=== PATIENT | female | born 1990 | race Caucasian/White ===

== ENCOUNTER → 2017-06-02 15:51 | Outpatient (CLI) | payer OTHER, SELFPAY ==
[2017-06-02 16:09] LABS: Hematocrit 36.7 % (37-47); Mean Corp Hgb Conc 32.7 g/gl (32-36); Mean Corpuscular Hgb 29.6 pg (27.0-32.0); Mean Corpuscular Volume 90.4 fL (81-99); Mean Platelet Vol. 11.6 fl (6.2-12.0); Platelet Count 194 K/mm3 (150-450); RBC Distribution Width CV 13.5 % (11.6-14.6); RBC Distribution Width SD 44.5 fl (35.1-43.9); Red Blood Count 4.06 M/mm3 (4.2-5.4); White Blood Count 11.2 K/mm3 (4.4-11.0)
[2017-06-02 16:38] LABS: Partial Thromboplast Time 27.7 Seconds (24.1-36.2)
[2017-06-02 16:54] LABS: Scan Indicated on CBC? Y/N NO
== END ==
PROVIDERS: Visit Provider Obstetrics & Gynecology
DX: O26.899 Other specified pregnancy related conditions, unspecified trimester (principal); R23.3 Spontaneous ecchymoses; Z3A.00 Weeks of gestation of pregnancy not specified
CPT/HCPCS: 36415; 85027; 85610; 85730

== ENCOUNTER → 2017-06-09 16:39 | Outpatient (CLI) | payer OTHER, SELFPAY ==
[2017-06-09 18:49] LABS: Group B Strep DNA By PCR Negative (Negative); Internal Control PASS; Probe Check PASS; Specimen Processing Control PASS
== END ==
PROVIDERS: Visit Provider Obstetrics & Gynecology
DX: Z36.85 Encounter for antenatal screening for Streptococcus B (principal)
CPT/HCPCS: 87081; 87653

== ENCOUNTER 2017-06-26 05:18 | Inpatient (IN) | payer BC, SELFPAY ==
[2017-06-23 09:58] VITALS: BMI 36.1
[2017-06-26] VITALS (22 sets, daily range): BP systolic 101–133; BP diastolic 59–94; PULSE 63–95; RESP 16–18; TEMP 35.8–36.6; O2SAT 95–99; BMI 37.0
[2017-06-26] MEDS: Lactated Ringers 1,000 ML 999 ML IV (05:43)
[2017-06-26 05:59] LABS: Absolute Lymphocyte Count 1.95 X10^3/ul (0.83-4.51); Absolute Neutrophil Count 8.2 X10^3/uL (2.0-7.7); Basophil# 0.02 X10^3/uL; Basophil% 0.2 % (0-1); Eosinophils% 0.9 % (0-5); Hematocrit 36.3 % (37-47); Hemoglobin 11.6 g/dl (12.0-15.0); Lymphocyte # 1.95 X10^3/ul (4.0); Lymphocyte % 17.9 % (19-41); Mean Corpuscular Hgb 28.9 pg (27.0-32.0); Mean Corpuscular Volume 90.5 fL (81-99); Mean Platelet Vol. 11.5 fl (6.2-12.0); Monocyte# 0.59 X10^3/uL; Monocyte% 5.4 % (0-10); Neutrophil # 8.15 X10^3/uL (2.7-7.7); Platelet Count 177 K/mm3 (150-450); RBC Distribution Width CV 13.8 % (11.6-14.6); RBC Distribution Width SD 45.6 fl (35.1-43.9); Red Blood Count 4.01 M/mm3 (4.2-5.4); White Blood Count 10.9 K/mm3 (4.4-11.0)
[2017-06-26 06:06] LABS: POSITIVE COUNT NO; POSITIVE DIFFERENTIAL NO; POSITIVE MORPHOLOGY NO
[2017-06-26 06:17] LABS: Prothrombin Time (Protime)PT. 13.1 SECONDS (11.7-14.9)
[2017-06-26 06:18] LABS: Partial Thromboplast Time 27.6 Seconds (24.1-36.2)
[2017-06-26] MEDS: Lactated Ringers 1,000 ML 150 ML IV (06:45)
[2017-06-26] MEDS: Sodium Citrate/Citric Acid 30 ML UDC PO (07:03)
[2017-06-26] MEDS: Clindamycin 900 MG/50 ML BAG 75 MG IV (07:30)
--- NOTE | 2017-06-26 08:35 | PCM.OB.CSR ---
- Problem List (1) delivery delivered Status: Acute Delivery Classification: Scheduled Final XIOMARA: 07/03/17 Final XIOMARA Source: US <20 weeks Gestational age: 39 Weeks and 0 Days Indications: 26 year old 2 para 1000 admitted at 39 weeks gestational age for scheduled repeat section. Indications for : Repeat Elective Description of Procedure: The patient was taken to the operating room and spinal analgesia was administered. She is placed in a dorsal supine position with left lateral tilt. The perineum and abdomen were prepped and draped in sterile fashion. And the spinal was found to be adequate. A Pfannenstiel incision was made using a scalpel and brought down to incise the subcutaneous tissue and rectus fascia at the midline. Subcutaneous tissue was bluntly dissected off the fascia laterally. The fascial incision was dissected laterally and cephalad using curved García scissors. The superior leaflet of the rectus fascia was grasped using Carolina clamps and bluntly dissected and sharply dissected from the underlying rectus muscle. In a similar fashion the inferior rectus fascia was dissected from the underlying muscle. The rectus muscles were bluntly at the midline. The peritoneum was identified and entered [sharply]. The bladder blade was placed into the abdomen and the vesicouterine peritoneal fold identified. The fold was incised and a bladder flap created. Bladder blade was then repositioned to the abdomen. A low transverse hysterotomy was made using the [Metzenbaum scissors] to level of the membranes. The hysterotomy was extended bluntly cephalad and caudad. The membranes were then ruptured revealing clear fluid. The head was elevated and brought to the level of the hysterotomy and the infant delivered revealing vigorous female infant. The cord was doubly clamped and cut after 30 seconds. The was passed to awaiting [nursery personnel]. The placenta was [expressed] from the uterus and appeared intact on inspection. The uterus was cleared of debris. The hysterotomy was then repaired using 0 Vicryl running lock suture. A second imbricating layer was also placed for additional hemostasis. The bladder blade was removed. The anterior cul-de-sac was cleared of debris. The peritoneum and rectus muscles were reapproximated using 2-0 Vicryl running suture. The rectus fascia was closed using 0 Vicryl running suture. The subcutaneous tissue was sponge irrigated and small capillary bleeding controlled using the Bovie device. The subcutaneous tissue was reapproximated using 2-0 Vicryl. The skin was closed using 4-0 Monocryl subcuticularly the TIRE DUSTER under my supervision. This was followed by Cavilon and a Mepilex occlusive dressing was placed over the incision. The fundus was firm. The patient was then transferred to the recovery room without complication. Sponge, instrument, and needle counts were correct ?2. Amniotic Membrane Rupture Type: Artificial Amniotic Fluid Description: Clear Placenta Disposition: [facility] Specimen(s) sent to pathology: placenta Drain: Bunch to straight drain Fluids Replaced: 1000 ml Cord Entanglement: None Nuchal Cord Compression: Without compression Cord Vessel Description: 3 Vessels Esitmated Blood Loss (ml): 700 ml Infant Gender: Female (1 minute): 9 (5 minute): 9 Delayed cord clamping: Yes Pre-op Antibiotic Given: Clindamycin 600mg IV x1 and Gentamicin 1.5mg/kg IV x1 Pt instructed on risks of surgery: Bleeding, Anesthesia Risks, Infection, Need for Future C-Sections, Injury to surrounding structure(s) including bowel and bladder Complications: None - Admit VTE Documentation VTE Present on Admission: Yes VTE Mechan Device Prophylaxis: SCD's VTE Pharm Prophylaxis ordered?: No
--- NOTE | 2017-06-26 08:36 | OP.PN_ITS ---
- Problem List (1) delivery delivered Status: Acute H-Bauofak-Hotxmryxa PostOp Date of Procedure: 06/26/17 Primary Surgeon/Physician: Wendy Ahmadi, business development coordinator: Vickie Marcelo Pre-op Diagnosis: Repeat Elective Post-Op Diagnosis: Repeat Elective Surgery/Procedure Performed: Repeat low transverse Section Description of Surgical Findings:: Normal tubes and ovaries Estimated Blood Loss: 700 mL Specimens Removed: placenta Drain: Bunch to straight drain Type of Anesthesia: Spinal - Admit VTE Documentation VTE Present on Admission: No VTE Mechan Device Prophylaxis: SCD's VTE Pharm Prophylaxis ordered?: No
--- NOTE | 2017-06-26 08:38 | OP.PCM_ITS ---
- Problem List (1) delivery delivered Status: Acute Delivery Classification: Scheduled Final XIOMARA: 07/03/17 Final XIOMARA Source: US <20 weeks Gestational age: 39 Weeks and 0 Days Indications: 26 year old 2 para 1000 admitted at 39 weeks gestational age for scheduled repeat section. Indications for : Repeat Elective Description of Procedure: The patient was taken to the operating room and spinal analgesia was administered. She is placed in a dorsal supine position with left lateral tilt. The perineum and abdomen were prepped and draped in sterile fashion. And the spinal was found to be adequate. A Pfannenstiel incision was made using a scalpel and brought down to incise the subcutaneous tissue and rectus fascia at the midline. Subcutaneous tissue was bluntly dissected off the fascia laterally. The fascial incision was dissected laterally and cephalad using curved García scissors. The superior leaflet of the rectus fascia was grasped using Carolina clamps and bluntly dissected and sharply dissected from the underlying rectus muscle. In a similar fashion the inferior rectus fascia was dissected from the underlying muscle. The rectus muscles were bluntly at the midline. The peritoneum was identified and entered [sharply]. The bladder blade was placed into the abdomen and the vesicouterine peritoneal fold identified. The fold was incised and a bladder flap created. Bladder blade was then repositioned to the abdomen. A low transverse hysterotomy was made using the [Metzenbaum scissors] to level of the membranes. The hysterotomy was extended bluntly cephalad and caudad. The membranes were then ruptured revealing clear fluid. The head was elevated and brought to the level of the hysterotomy and the infant delivered revealing vigorous female infant. The cord was doubly clamped and cut after 30 seconds. The was passed to awaiting [nursery personnel]. The placenta was [expressed ] from the uterus and appeared intact on inspection. The uterus was cleared of debris. The hysterotomy was then repaired using 0 Vicryl running lock suture. A second imbricating layer was also placed for additional hemostasis. The bladder blade was removed. The anterior cul-de-sac was cleared of debris. The peritoneum and rectus muscles were reapproximated using 2-0 Vicryl running suture. The rectus fascia was closed using 0 Vicryl running suture. The subcutaneous tissue was sponge irrigated and small capillary bleeding controlled using the Bovie device. The subcutaneous tissue was reapproximated using 2-0 Vicryl. The skin was closed using 4-0 Monocryl subcuticularly the RETANNED LEATHER ROLLER under my supervision. This was followed by Cavilon and a Mepilex occlusive dressing was placed over the incision. The fundus was firm. The patient was then transferred to the recovery room without complication. Sponge, instrument, and needle counts were correct ?2. Amniotic Membrane Rupture Type: Artificial Amniotic Fluid Description: Clear Placenta Disposition: [facility] Specimen(s) sent to pathology: placenta Drain: Bunch to straight drain Fluids Replaced: 1000 ml Cord Entanglement: None Nuchal Cord Compression: Without compression Cord Vessel Description: 3 Vessels Esitmated Blood Loss (ml): 700 ml Gender: Female (1 minute): 9 (5 minute): 9 Delayed cord clamping: Yes Pre-op Antibiotic Given: Clindamycin 600mg IV x1 and Gentamicin 1.5mg/kg IV x1 Pt instructed on risks of surgery: Bleeding, Anesthesia Risks, Infection, Need for Future C-Sections, Injury to surrounding structure(s) including bowel and bladder Complications: None - Admit VTE Documentation VTE Present on Admission: Yes VTE Mechan Device Prophylaxis: SCD's VTE Pharm Prophylaxis ordered?: No
[2017-06-26] MEDS: Methylergonovine 0.2 MG/ML Ampul IM (08:40)
[2017-06-26] MEDS: Lactated Ringers 1,000 ML 100 ML IV ×3 (08:49→18:18)
[2017-06-26] MEDS: Oxytocin 30 units/NS 500 ml 30 UNITS/500 ML IV.SOLN 167 UNITS IV (08:49)
[2017-06-26] MEDS: Ketorolac 30 MG/ML Syringe IV ×2 (13:00→18:17)
[2017-06-27] VITALS (7 sets, daily range): BP systolic 102–134; BP diastolic 62–81; PULSE 72–91; RESP 15–18; TEMP 36.6–36.8; O2SAT 95–100
[2017-06-27] MEDS: Ketorolac 30 MG/ML Syringe IV ×5 (00:07→23:45)
[2017-06-27] MEDS: Lactated Ringers 1,000 ML 100 ML IV (04:07)
[2017-06-27 06:17] LABS: Hematocrit 28.6 % (37-47); Hemoglobin 9.3 g/dl (12.0-15.0); Mean Corp Hgb Conc 32.5 g/gl (32-36); Mean Corpuscular Hgb 29.8 pg (27.0-32.0); Mean Corpuscular Volume 91.7 fL (81-99); Mean Platelet Vol. 11.6 fl (6.2-12.0); Platelet Count 156 K/mm3 (150-450); RBC Distribution Width CV 13.7 % (11.6-14.6); RBC Distribution Width SD 44.8 fl (35.1-43.9); Red Blood Count 3.12 M/mm3 (4.2-5.4); White Blood Count 10.9 K/mm3 (4.4-11.0)
[2017-06-27 06:19] LABS: Scan Indicated on CBC? Y/N NO
--- NOTE | 2017-06-27 06:36 | NURSING ---
0600 pt has removed SCD, moving legs in bed was up in chair and in room 2 or more times last evening so left off and encouraged to continue to move legs will be 24 post op by 8am. states they were making her legs itch.
--- NOTE | 2017-06-27 09:14 | NURSING ---
duong removed with 780cc urine
[2017-06-27] MEDS: Prenatal Vits Tablet 1 TABLET PO (10:01)
--- NOTE | 2017-06-27 10:06 | PCM.PN.OB ---
Patient Problems: Active and Suspected Problems delivery delivered (Acute) Subjective: Nausea resolved. tolerates regular diet. Passing flatus. Denies heavy lochia. Pain is minimal 2-3/10. She is out of bed, ambulating, showered already. She is nursing. Objective: AVSS - Physical Exam General: Alert, Oriented x3, Cooperative, No apparent distress HEENT: Atraumatic, Normocephalic Lungs: Clear to auscultation, Normal air movement Cardiovascular: Regular rate, Regular Rhythm, Normal S1, Normal S2 Abdomen: Soft, Non Tender, Non-Distended, Passing Flatus, - - Fundus firm and nontender Extremities: No edema, No Calf Tenderness Neurological: Neuro grossly intact Psych/Mental Status: Normal Affect, Appropriate, Alert and oriented to time, place, person, mood and affect Vital Signs Temp Pulse Resp BP Pulse Ox 98.1 F 81 17 123/79 H 100 06/27/17 08:00 06/27/17 08:00 06/27/17 08:00 06/27/17 08:00 06/27/17 08:00 Oxygen Delivery Method Room Air Weight: 92 kg Body Mass Index (BMI) 37.0 Intake and Output for Last 24 Hours 06/25/17 06/26/17 06/27/17 23:59 23:59 23:59 Intake Total 2306 / 2306 2741 / 2741 Output Total 1625 / 1625 2330 / 2330 Balance 681 / 681 411 / 411 Laboratory Tests Past 24 Hrs 06/27/17 06:05 WBC 10.9 RBC 3.12 L Hgb 9.3 L Hct 28.6 L MCV 91.7 MCH 29.8 MCHC 32.5 RDW 13.7 RDW Differential 44.8 H Plt Count 156 MPV 11.6 Assessment/Plan Active and Suspected Problems delivery delivered (Acute) 26yo POD#1 s/p RLTCS doing well. -Rh positive, Rubella immune -Routine postop care - support
[2017-06-27] MEDS: 0.9% Saline Lock 10 ML Syringe IV ×2 (12:15→18:05)
--- NOTE | 2017-06-27 15:25 | NURSING ---
1100 Observed latch and baby doing well with latch. Mom doing a great job with latching and holding baby in a cross cradle position. Mom to be getting a home breast pump but will need to check with her insurance on Thursday to see if approved. Mario ALBRIGHT
[2017-06-27] MEDS: Senna/Docusate Sodium 1 Tablet PO (16:12)
--- NOTE | 2017-06-27 17:21 | PCM.DCCSEC ---
Discharge Diet: No Restrictions Discharge Activity: Return to Normal Activity May resume sexual activity in: 6 weeks Lifting Restrictions: 10 lb Suture Line Care: Avoid Pulling/Pushing Cleanse incision/area with: Soap & Water Additional Dressing/Incision Instructions:: Remove dressing on Thursday morning Additional Instructions: If you experience any of the following, contact your healthcare provider. Bleeding that soaks a pad every hour for 2 hours Fever 100.4 or higher Unrelieved incision or abdominal pain Swelling, redness, discharge or bleeding from your incision or episiotomy site Your incision begins to separate Problems urinating (including inability to urinate or burning while urinating). Visual changes Severe headache Flu-like symptoms Pain or redness in one of both of your breasts Pain, warmth, tenderness or swelling in your legs, especially the calf area Frequent nausea and vomiting Symptoms of depression or anxiety If you experience any of the following, call 911 or go to the nearest Emergency Room. Chest pain Problems breathing Seizure activity Partial or complete paralysis of a body part, slurred speech, weakness or drooping of the face, or a sudden inability to walk or hold your balance Allergies/Adverse Reactions: Allergies ampicillin Allergy (Verified 06/23/17 09:29) Unknown cefaclor [From Ceclor] Allergy (Verified 06/23/17 09:30) Unknown cefotaxime Allergy (Verified 06/23/17 09:29) Unknown Medications to take at Discharge Prenatabs FA 1 tab PO DAILY 06/23/17 Docusate Sodium [Colace] 100 mg PO BID PRN PRN #60 cap 06/27/17 Ibuprofen 800 mg PO TID PRN #30 tab 06/27/17 Oxycodone [Oxyir] 5 mg PO Q4H PRN PRN 7 Days #28 tablet 06/27/17 The following prescriptions were given: Oxycodone [Oxyir] 5 mg PO Q4H PRN PRN 7 Days #28 tablet PRN Reason: Pain Docusate Sodium [Colace] 100 mg PO BID PRN PRN #60 cap PRN Reason: Constipation Ibuprofen 800 mg PO TID PRN #30 tab PRN Reason: Pain Orders to be completed after discharge: Electric breast pump Location: None Selected Follow-Up: Call to make an appointment with your doctor for an incision check in 1-2 weeks. You will also need a 6 week post- follow up appointment. Please Follow Up With: Wendy Ahmadi MD When: 1-2 weeks Primary Care Physician: Care Physician,No Primary [Primary Care Provider] -
--- NOTE | 2017-06-27 17:24 | DCINST_ITS ---
Discharge Diet: No Restrictions Discharge Activity: Return to Normal Activity May resume sexual activity in: 6 weeks Lifting Restrictions: 10 lb Suture Line Care: Avoid Pulling/Pushing Cleanse incision/area with: Soap & Water Additional Dressing/Incision Instructions:: Remove dressing on Thursday morning Additional Instructions: If you experience any of the following, contact your healthcare provider. * Bleeding that soaks a pad every hour for 2 hours * Fever 100.4 or higher * Unrelieved incision or abdominal pain * Swelling, redness, discharge or bleeding from your incision or episiotomy site * Your incision begins to separate * Problems urinating (including inability to urinate or burning while urinating) . * Visual changes * Severe headache * Flu-like symptoms * Pain or redness in one of both of your breasts * Pain, warmth, tenderness or swelling in your legs, especially the calf area * Frequent nausea and vomiting * Symptoms of depression or anxiety If you experience any of the following, call 911 or go to the nearest Emergency Room. * Chest pain * Problems breathing * Seizure activity * Partial or complete paralysis of a body part, slurred speech, weakness or drooping of the face, or a sudden inability to walk or hold your balance Allergies/Adverse Reactions: Allergies ampicillin Allergy (Verified 06/23/17 09:29) Unknown cefaclor [From Ceclor] Allergy (Verified 06/23/17 09:30) Unknown cefotaxime Allergy (Verified 06/23/17 09:29) Unknown Medications to take at Discharge Prenatabs FA 1 tab PO DAILY 06/23/17 Docusate Sodium [Colace] 100 mg PO BID PRN PRN #60 cap 06/27/17 Ibuprofen 800 mg PO TID PRN #30 tab 06/27/17 Oxycodone [Oxyir] 5 mg PO Q4H PRN PRN 7 Days #28 tablet 06/27/17 The following prescriptions were given: Oxycodone [Oxyir] 5 mg PO Q4H PRN PRN 7 Days #28 tablet PRN Reason: Pain Docusate Sodium [Colace] 100 mg PO BID PRN PRN #60 cap PRN Reason: Constipation Ibuprofen 800 mg PO TID PRN #30 tab PRN Reason: Pain Orders to be completed after discharge: Electric breast pump Location: None Selected Follow-Up: Call to make an appointment with your doctor for an incision check in 1-2 weeks. You will also need a 6 week post- follow up appointment. Please Follow Up With: Wendy Ahmadi MD When: 1-2 weeks Primary Care Physician: Care Physician,No Primary [Primary Care Provider] -
--- NOTE | 2017-06-27 17:28 | PCM.PN.BLA ---
Progress Note PROGRESS NOTE Doing well. No complaints. Relates she would like discharge to home today if infant bilirubin levels are normal. I encouraged her to consider staying an additional day for support. Dorys indicated that she feels more comfortable after meeting with wine consultant today and she will see her local wine consultant following discharge. Will plan for d/c home today if infant cleared.
--- NOTE | 2017-06-27 17:33 | PN_ITS ---
Progress Note PROGRESS NOTE Doing well. No complaints. Relates she would like discharge to home today if infant bilirubin levels are normal. I encouraged her to consider staying an additional day for support. Dorys indicated that she feels more comfortable after meeting with e business consultant today and she will see her local e business consultant following discharge. Will plan for d/c home today if infant cleared.
[2017-06-28 01:45] VITALS: BP 115/76; PULSE 85; RESP 16; TEMP 36.6; O2SAT 97
--- NOTE | 2017-06-28 03:23 | NURSING ---
Pt called and states her was having some chest pain/tightness and headache. this nurse came to the room, spouse seemed stable at this point but strongly encouraged to go to the ER. He was upset his called the nurse but after some encouragement walked with the nurse to the ER. Spouse would not go in a wheelchair.
--- NOTE | 2017-06-28 04:55 | PCM.DC.SUM ---
Discharge Date and Diagnosis Date of Admission: 06/26/17 Date of Discharge: 06/28/17 - Primary Discharge Diagnosis Active and Suspected Problems delivery delivered (Acute) Hospital Course and Treatment Operations: - - section Summary of Care Provided: The patient is a 26 year old F [id number] admitted at [facility] for scheduled repeat section. Her delivery was uncomplicated. She was out of bed, ambulating, tolerating a regular diet and nursing. She was discharged to home on post-op day #2 following and uncomplicated post-operative course. Discharge Diet: No Restrictions Discharge Activity: Return to Normal Activity May resume sexual activity in: 6 weeks Suture Line Care: Avoid Pulling/Pushing Cleanse incision/area with: Soap & Water Additional Dressing/Incision Instructions:: Remove dressing on Thursday morning Home Medications: Medications to take at Discharge Prenatabs FA 1 tab PO DAILY 06/23/17 Docusate Sodium [Colace] 100 mg PO BID PRN PRN #60 cap 06/27/17 Ibuprofen 800 mg PO TID PRN #30 tab 06/27/17 Oxycodone [Oxyir] 5 mg PO Q4H PRN PRN 7 Days #28 tablet 06/27/17 Following Prescrptions Were Given to Patient: Oxycodone [Oxyir] 5 mg PO Q4H PRN PRN 7 Days #28 tablet PRN Reason: Pain Docusate Sodium [Colace] 100 mg PO BID PRN PRN #60 cap PRN Reason: Constipation Ibuprofen 800 mg PO TID PRN #30 tab PRN Reason: Pain Other Amb Orders: Electric breast pump Location: None Selected Primary Care Physician: Care Physician,No Primary [Primary Care Provider] - Please Follow Up With: Wendy Ahmadi MD When: 1-2 weeks Meaningful Use Info Meaningful Use Diagnoses (Choose all that apply): None applicable
--- NOTE | 2017-06-28 05:11 | DS.PCM_ITS ---
Discharge Date and Diagnosis Date of Admission: 06/26/17 Date of Discharge: 06/28/17 - Primary Discharge Diagnosis Active and Suspected Problems delivery delivered (Acute) Hospital Course and Treatment Operations: - - section Summary of Care Provided: The patient is a 26 year old F [id number] admitted at [facility] for scheduled repeat section. Her delivery was uncomplicated. She was out of bed, ambulating, tolerating a regular diet and nursing. She was discharged to home on post-op day #2 following and uncomplicated post-operative course. Discharge Diet: No Restrictions Discharge Activity: Return to Normal Activity May resume sexual activity in: 6 weeks Suture Line Care: Avoid Pulling/Pushing Cleanse incision/area with: Soap & Water Additional Dressing/Incision Instructions:: Remove dressing on Thursday morning Home Medications: Medications to take at Discharge Prenatabs FA 1 tab PO DAILY 06/23/17 Docusate Sodium [Colace] 100 mg PO BID PRN PRN #60 cap 06/27/17 Ibuprofen 800 mg PO TID PRN #30 tab 06/27/17 Oxycodone [Oxyir] 5 mg PO Q4H PRN PRN 7 Days #28 tablet 06/27/17 Following Prescrptions Were Given to Patient: Oxycodone [Oxyir] 5 mg PO Q4H PRN PRN 7 Days #28 tablet PRN Reason: Pain Docusate Sodium [Colace] 100 mg PO BID PRN PRN #60 cap PRN Reason: Constipation Ibuprofen 800 mg PO TID PRN #30 tab PRN Reason: Pain Other Amb Orders: Electric breast pump Location: None Selected Primary Care Physician: Care Physician,No Primary [Primary Care Provider] - Please Follow Up With: Wendy Ahmadi MD When: 1-2 weeks Meaningful Use Info Meaningful Use Diagnoses (Choose all that apply): None applicable
--- NOTE | 2017-06-28 05:11 | PCM.PN.OB ---
Patient Problems: Active and Suspected Problems delivery delivered (Acute) Subjective: to ER with chest pain. Apart from that she is doing well. She plans to continue only Ibuprofen at this time for pain as pain is minimal. Infant is cluster feeding, but she continues to do well with . No complaints. Objective: avss - Physical Exam General: Alert, Oriented x3, Cooperative, No apparent distress HEENT: Atraumatic, Normocephalic Lungs: Clear to auscultation, Normal air movement Cardiovascular: Regular rate, Regular Rhythm, Normal S1, Normal S2 Abdomen: Bowel Sounds Present, Soft, Non Tender, Non-Distended, - - Fundus firm and nontender at 2 FW below umbilicus, incisional dressing c/d/i Extremities: No edema, No Calf Tenderness Neurological: Neuro grossly intact Psych/Mental Status: Normal Affect, Appropriate, Alert and oriented to time, place, person, mood and affect Vital Signs Temp Pulse Resp BP Pulse Ox 97.8 F 85 16 115/76 97 06/28/17 01:45 06/28/17 01:45 06/28/17 01:45 06/28/17 01:45 06/28/17 01:45 Oxygen Delivery Method Room Air Weight: 92 kg Body Mass Index (BMI) 37.0 Intake and Output for Last 24 Hours 06/26/17 06/27/17 06/29/17 23:59 23:59 00:59 Intake Total 2306 / 2306 2741 / 2741 Output Total 1625 / 1625 2630 / 2630 Balance 681 / 681 111 / 111 Laboratory Tests Past 24 Hrs 06/27/17 06:05 WBC 10.9 RBC 3.12 L Hgb 9.3 L Hct 28.6 L MCV 91.7 MCH 29.8 MCHC 32.5 RDW 13.7 RDW Differential 44.8 H Plt Count 156 MPV 11.6 Assessment/Plan Active and Suspected Problems delivery delivered (Acute) 26yo POD#2 s/p RLTCS doing well. -Support offered -Rh positive, Rubella immune -Routine postop care - support -Plan for d/c home later today pending bilirubin levels.
[2017-06-28] MEDS: Ibuprofen 600 MG Tablet PO (08:16)
[2017-06-28 09:45] VITALS: BP 121/83; PULSE 91; RESP 18; TEMP 36.9
== END 2017-06-28 09:45 | disposition home or self-care (01) | DRG 765 ==
PROVIDERS: Admitting Provider Obstetrics & Gynecology; Visit Provider Obstetrics & Gynecology
DX: O34.211 Maternal care for low transverse scar from previous cesarean delivery (principal); O44.03 Complete placenta previa NOS or without hemorrhage, third trimester; O32.3XX0 Maternal care for face, brow and chin presentation, not applicable or unspecified; O69.81X0 Labor and delivery complicated by cord around neck, without compression, not applicable or unspecified; Z3A.39 39 weeks gestation of pregnancy; Z37.0 Single live birth
CPT/HCPCS: 85025; 85027; 85610; 85730; 86850; 86900; 99218; J7120; 90686; A4216; G0378; J2405

== ENCOUNTER → 2019-03-02 | Outpatient (CLI) | payer BC, SELFPAY ==
[2017-06-26 05:30] VITALS: BMI 37.0
[2019-03-02 18:11] LABS: Chlamydia Trachomatis by PCR Negative (Negative); Neisserai gonorrhoeae by PCR Negative (Negative); Probe Check PASS; Sample Adequacy Control PASS; Specimen Processing Control PASS
== END | disposition home or self-care (01) ==
LOC: LABSPEC 15:05
PROVIDERS: Visit Provider Obstetrics & Gynecology
DX: Z11.3 Encounter for screening for infections with a predominantly sexual mode of transmission (principal); Z32.01 Encounter for pregnancy test, result positive
CPT/HCPCS: 87491; 87591

== ENCOUNTER → 2019-04-01 11:50 | Outpatient (CLI) | payer BC, SELFPAY ==
[2017-06-26 05:30] VITALS: BMI 37.0
[2019-04-01 13:37] LABS: Color, Urine Straw (Yellow); Glucose, Dipstick Normal (Normal); Ketone-Dipstick Negative (Negative); Leukocyte Esterase-Dipstick Negative /ul (Negative); Nitrite-Dipstick Negative (Negative); Occult Blood-Urine Negative /ul (Negative); Protein-Dipstick Negative (Negative); Specific Gravity, Urine 1.005 (1.002-1.030); Urine Bilirubin Dipstick Negative (Negative); Urine Clarity Clear (Clear); Urine Urobilinogen Normal (Normal)
[2019-04-01 13:52] LABS: Absolute Lymphocyte Count 2.49 X10^3/uL (0.83-4.51); Basophil# 0.04 X10^3/uL; Basophil% 0.5 % (0-1); Eosinophils% 1.2 % (0-5); Hematocrit 40.1 % (37-47); Hemoglobin 13.3 g/dL (12.0-15.0); Lymphocyte # 2.49 X10^3/ul (4.0); Lymphocyte % 30.4 % (19-41); Mean Corp Hgb Conc 33.2 g/dL (32-36); Mean Corpuscular Hgb 30.1 pg (27.0-32.0); Mean Corpuscular Volume 90.7 fL (81-99); Mean Platelet Vol. 11.2 fl (6.2-12.0); Monocyte# 0.48 X10^3/uL; Monocyte% 5.9 % (0-10); NRBC Flagged by Analyzer 0 % (0-5); Neutrophil # 5.04 X10^3/uL (2.7-7.7); Neutrophil % 61.5 % (47-70); Platelet Count 262 K/mm3 (150-450); RBC Distribution Width CV 13.3 % (11.6-14.6); RBC Distribution Width SD 44.2 fl (35.1-43.9); Red Blood Count 4.42 M/mm3 (4.2-5.4); White Blood Count 8.2 K/mm3 (4.4-11.0)
[2019-04-01 13:53] LABS: Amphetamine Urine VISTA NEGATIVE (<1000 ng/mL); Barbiturate Urine VISTA NEGATIVE (< 200 ng/mL); Benzodiazepine Urine VISTA NEGATIVE (< 200 ng/mL); Cocaine Urine VISTA NEGATIVE (< 300 ng/mL); Ecstacy Urine VISTA NEGATIVE (< 500 ng/mL); Methadone Urine VISTA NEGATIVE (< 300 ng/mL); PCP Urine VISTA NEGATIVE (< 25 ng/mL); THC Urine VISTA NEGATIVE (< 50 ng/mL); Vista UDS pH Range 6
[2019-04-01 13:55] LABS: Thyroid Stim Hormone (TSH) 1.24 uIU/mL (0.358-3.74)
[2019-04-01 14:47] LABS: HIV - WCH Non-Reactive (Nonreactive); Hepatitis B Surface Antigen Non-Reactive (Nonreactive); Hepatitis C Antibody Non-Reactive (Nonreactive); Rubella IgG 55.7 IU/mL
[2019-04-07 02:17] LABS: Prenatal RPR NONREACTIVE (NONREACTIVE)
== END ==
PROVIDERS: Visit Provider Advanced Practice Midwife
DX: Z34.81 Encounter for supervision of other normal pregnancy, first trimester (principal)
CPT/HCPCS: 36415; 80307; 81002; 84443; 85025; 86703; 86762; 86803; 87340

== ENCOUNTER → 2019-07-27 | Outpatient (CLI) | payer BC, SELFPAY ==
[2019-07-27 15:05] LABS: Hematocrit 36.5 % (37-47); Hemoglobin 11.6 g/dL (12.0-15.0); Mean Corp Hgb Conc 31.8 g/dL (32-36); Mean Corpuscular Hgb 30.1 pg (27.0-32.0); Mean Corpuscular Volume 94.6 fL (81-99); Mean Platelet Vol. 11.2 fl (6.2-12.0); Platelet Count 201 K/mm3 (150-450); RBC Distribution Width CV 14.1 % (11.6-14.6); RBC Distribution Width SD 48.4 fl (35.1-43.9); Red Blood Count 3.86 M/mm3 (4.2-5.4); White Blood Count 7.8 K/mm3 (4.4-11.0)
[2019-07-27 15:14] LABS: Glucose Challenge Gest 1H 50g 121 mg/dL (70-140)
== END | disposition home or self-care (01) ==
LOC: LABSPEC 13:58
PROVIDERS: Referring Provider Obstetrics & Gynecology; Visit Provider Obstetrics & Gynecology
DX: Z34.82 Encounter for supervision of other normal pregnancy, second trimester (principal)
CPT/HCPCS: 82950; 85027

== ENCOUNTER → 2019-09-27 | Outpatient (CLI) | payer BC, SELFPAY ==
[2017-06-26 05:30] VITALS: BMI 37.0
== END | disposition home or self-care (01) ==
LOC: LABSPEC 13:15
PROVIDERS: PCP Family Medicine; Visit Provider Obstetrics & Gynecology
DX: Z36.85 Encounter for antenatal screening for Streptococcus B (principal)
CPT/HCPCS: 87081

== ENCOUNTER 2019-09-30 09:35 | Inpatient (IN) | payer BC, SELFPAY ==
[2017-06-26 05:30] VITALS: BMI 37.0
[2019-09-30] VITALS (15 sets, daily range): BP systolic 97–124; BP diastolic 36–86; PULSE 63–96; RESP 12–18; TEMP 36–36.7; O2SAT 95–100; BMI 41.5
--- NOTE | 2019-09-30 | FALS_PTH ---
PATIENT: PIPPA CUI LOC: [facility] U#:[id number] AGE/SX: 28/F ROOM: WP005 RE09/30/[address]: Dr. Wendy Asher MD : [id number] BED: 1 DIS: 10/01/2019 SPEC #: [id number] RECD: 10/03/19 09:49 STATUS: ALIDA REChago #: [id number] ISABEL: 09/30/19 00:[address]: Wendy Blankenship DEPT: SURGICAL PATHOLOGY RECD BY: Khari Houser ENTERED: 10/03/19 09:50 SP TYPE: FALL TUBES OTHR DR: Dr. Papa Curiel MD Tissues: Fallopian tube Procedures: Surgery Specimen Level II HEADER OPERATION: Tubal ligation PRE-OP DIAGNOSIS: Sterilization TISSUE SUBMITTED: Fallopian tubes MICROSCOPIC DIAGNOSIS Bilateral fallopian tubes, salpingectomy: Bilateral fallopian tubes including fimbrial ends, no pathologic diagnosis. LORI:braden 10/04/19 MICROSCOPIC DESCRIPTION Slides are reviewed. GROSS DESCRIPTION Received in fixative is one container labeled with the patient's name and designated bilateral fallopian tubes, suture on left. The specimen consists of bilateral fallopian tubes including fimbrial ends. The right fallopian tube measures 8.5 cm in length and 1 cm in diameter and the left fallopian tube measures 10 cm in length and 0.9 cm in diameter. Sections reveal congested cut surfaces. Card Grinder sections are submitted in two cassettes as follows: 1 - right fallopian tube,2 - left fallopian tube. / LORI:braden 10/03/19 TC:4 CPT: 10120 x2
[2019-09-30] MEDS: Lactated Ringers 1,000 ML 999 ML IV (09:55)
[2019-09-30 10:18] LABS: Absolute Lymphocyte Count 1.72 X10^3/uL (0.83-4.51); Absolute Neutrophil Count 6.6 X10^3/uL (2.0-7.7); Basophil# 0.03 X10^3/uL; Basophil% 0.3 % (0-1); Eosinophil# 0.07 X10^3/uL; Eosinophils% 0.8 % (0-5); Hematocrit 34.3 % (37-47); Hemoglobin 11.1 g/dL (12.0-15.0); Lymphocyte # 1.72 X10^3/ul (4.0); Lymphocyte % 19.5 % (19-41); Mean Corp Hgb Conc 32.4 g/dL (32-36); Mean Corpuscular Volume 92.7 fL (81-99); Mean Platelet Vol. 11.7 fl (6.2-12.0); Monocyte# 0.31 X10^3/uL; Monocyte% 3.5 % (0-10); NRBC Flagged by Analyzer 0 % (0-5); Neutrophil # 6.63 X10^3/uL (2.7-7.7); Neutrophil % 75.1 % (47-70); Platelet Count 188 K/mm3 (150-450); RBC Distribution Width CV 14.2 % (11.6-14.6); RBC Distribution Width SD 47.9 fl (35.1-43.9); White Blood Count 8.8 K/mm3 (4.4-11.0)
[2019-09-30] MEDS: Acetaminophen 500 MG Tablet 1000 MG PO ×3 (10:19→22:14)
[2019-09-30] MEDS: Lactated Ringers 1,000 ML 150 ML IV (11:29)
--- NOTE | 2019-09-30 12:20 | PCM.HP.OB ---
- Problem List (1) 37 weeks gestation of Status: Acute (2) Decreased movement Status: Acute Qualifiers: Trimester: third trimester History Date of Admission: 09/30/19 Final XIOMARA: 10/17/19 Final XIOMARA Source: US <20 weeks Gestational age: 37 Weeks and 4 Days History of this : This is a 28 year-old, G [3], P [2001], at 37 4/7 weeks gestational age hx prior term stillbirth with persistent decreased movement this week. Surgical History: Surgical History (Last Updated 09/30/19 @ 12:[address] Wendy Asher MD) Previous section Z98.891 2015, 2017 Allergies ampicillin Allergy (Verified 06/23/17 09:29) Unknown cefaclor [From Ceclor] Allergy (Verified 06/23/17 09:30) Unknown cefotaxime Allergy (Verified 06/23/17 09:29) Unknown Home Medications: Home Medications Prenatabs FA 1 tab PO DAILY 06/23/17 Smoking Status: Never smoker Alcohol: None History Past Pregnancies: Past Pregnancies Delivery Date Name GA/ Weeks Outcome Route Wt Infant Sex Labor Length Anesthesia Delivery Location Provider FOB 12/2015 [place] 40 IUFD, IOL, face presentation C/S 8lb7oz M 24 Epidural [facility] Aurelio 06/2017 Hel[place] 39 Living C/S 5yr64oh F Spinal [facility] Rolo Carey Labs: Mom's Problem List Problem Status Onset Code 37 weeks gestation of Acute Z3A.37 Decreased movement Acute O36.8190 Mom's Labs & Results 09/30/19 09/30/19 09/30/19 09:50 09:55 09:55 WBC 8.8 RBC 3.70 L Hgb 11.1 L Hct 34.3 L MCV 92.7 MCH 30.0 MCHC 32.4 RDW Std Deviation 47.9 H RDW Coeff of Mitchell 14.2 Plt Count 188 MPV 11.7 Immature Gran % (Auto) 0.800 Neut % (Auto) 75.1 H Lymph % (Auto) 19.5 [place] % (Auto) 3.5 Eos % (Auto) 0.8 Baso % (Auto) 0.3 Absolute Neuts (auto) 6.6 Absolute Lymphs (auto) 1.72 Nucleated RBC % 0 COVID-19 ([facility]ILLIAM) Pending Blood Type A POSITIVE Antibody Screen NEGATIVE Course Did the patient receive Yes care? Labs Blood Type: A RH: POSITIVE RPR/VDRL/Syphilis Nonreactive Rubella status Immune HbSAg Negative Date Done: 04/01/19 Chlamydia Negative Gonorrhea Negative HIV/AIDS Non-Reactive Group B Strep: Negative Current Obstetrical History Gestational Diabetes No Incompetent Cervix No Infertility No IUGR No Macrosomia No Hypertension/Pre-eclampsia No Placenta Previa/Abruption No PTL/PROM No Uterine anomaly No Oligohydramnios No Polyhydramnios Yes Multiple gestation No Past Medical History Asthma No Diabetes No Hypertension No Heart disease No Mitral valve prolapse No Neurologic/Seizure disorder/ No Migraines Kidney disease No Liver disease No Varicosities No Clotting disorders/Hx of DVT No Thyroid Dysfunction No Other medical diseases No Psychiatric disorders No Major trauma No Abnormal PAP smear No Sleep apnea No Mammogram in the last 2 years No Social History Marital Status: Alleged father Aurelio James Hx Smoking No Smoking Status Never smoker Expected Delivery Method: Scheduled Section Number of Visits: 12 Physical Exam Vitals: avss General: Alert, Oriented x3, Cooperative, No apparent distress HEENT: Atraumatic, Normocephalic Cardiovascular: Regular rate, Regular Rhythm, Normal S1, Normal S2 Lungs: Normal air movement Abdomen: Soft, Non Tender, Non-Distended, Gravid Assessment/Plan All Active Problems delivery delivered (Acute) 37 weeks gestation of (Acute) Decreased movement (Acute) This is a 28 year-old, G []3, P [2000], at 37 4/7 weeks gestational age, with polyhydramnios, hx prior stillbirth and decreased movement for scheduled repeat c/S. -Proceed with repeat section and bilateral salpingectomy as planned.
[2019-09-30] MEDS: Sodium Citrate/Citric Acid 30 ML UDC PO (12:28)
[2019-09-30] MEDS: Ondansetron 4 MG/2 ML Vial IV (13:08)
--- NOTE | 2019-09-30 13:54 | OP.PCM_ITS ---
Problem List (1) 37 weeks gestation of Status: Acute (2) Decreased movement Status: Acute Qualifiers: Trimester: third trimester Delivery Classification: Scheduled Final XIOMARA: 10/04/19 Final XIOMARA Source: US <20 weeks Gestational age: 39 Weeks and 3 Days toddler nanny: Vickie Marcelo Type of Anesthesia:: Spinal Date of Procedure: 09/30/19 Pre-Operative Diagnosis: 39 3/7wga. Decreased movement. Prior hx stillbirth. Polyhydramnios Post-Operative Diagnosis: same Indications: 28-year-old 3 para 2-0-0-1 admitted at 37-3/7 weeks gestational age for scheduled repeat with tubal sterilization procedure. She has a history of a term stillbirth as well as polyhydramnios during this . She experienced persistent decreased movement this week and following counseling was advised to proceed with delivery. She also desired permanent sterilization. Procedural risks, benefits, indications were reviewed at length. Indications for : Repeat Elective , - - Polyhydramnios, Persistent decreased movement Description of Procedure: The patient was taken to the operating room and spinal analgesia was administered. She is placed in a dorsal supine position with left lateral tilt. The perineum and abdomen were prepped and draped in sterile fashion. And the spinal was found to be adequate. A Pfannenstiel incision was made using a scalpel and brought down to incise the subcutaneous tissue and rectus fascia at the midline. Subcutaneous tissue was bluntly dissected off the fascia laterally. The fascial incision was dissected laterally and cephalad using curved García scissors. The superior leaflet of the rectus fascia was grasped using Carolina clamps and bluntly dissected and sharply dissected from the underlying rectus muscle. In a similar fashion the inferior rectus fascia was dissected from the underlying muscle. The rectus muscles were bluntly at the midline. The peritoneum was identified and entered [sharply]. The bladder blade was placed into the abdomen and the vesicouterine peritoneal fold identified. The fold was incised and a bladder flap created. Bladder blade was then repositioned to the abdomen. A low transverse hysterotomy was made using the [Metzenbaum scissors] to level of the membranes. The hysterotomy was extended bluntly cephalad and caudad. The membranes were then ruptured revealing clear fluid. The head was elevated and brought to the level of the hysterotomy and the delivered revealing vigorous [female] . The cord was doubly clamped and cut after 60 seconds. The infant was passed to awaiting [nursery personnel]. The placenta was [expressed] from the uterus and appeared intact on inspection. The uterus was exteriorized and cleared of debris. The hysterotomy was then repaired using 0 Vicryl running lock suture. A second imbricating layer was also placed for additional hemostasis. Right salpingectomy was performed using the LigaSure impact to transect the mesosalpinx to the level of the uterine cornua. In similar fashion left salpingectomy was also performed. The bladder blade was removed. The uterus and remaining adnexa were returned to the abdomen. Bladder blade was repositioned into the abdomen. There was good hemostasis at the hysterotomy. T he anterior cul-de-sac was cleared of debris. The peritoneum and rectus muscles were reapproximated using 2-0 Vicryl running suture. The rectus fascia was closed using 0 strata fix running suture. Small capillary bleeding in the subcutaneous tissue controlled using the Bovie device. The subcutaneous tissue was reapproximated using 2-0 Vicryl. The skin was closed using 4-0 Monocryl subcuticularly by the SOLDERING MACHINE TENDER under my supervision. A Mepilex occlusive dressing was placed over the incision. The fundus was firm. The patient was then transferred to the recovery room without complication. Sponge, instrument, and needle counts were correct ?2. Amniotic Fluid Description: Clear Placenta Disposition: [facility] Specimen(s) sent to pathology: bilateral tubes Drain: Bunch to straight drain Fluids Replaced: 1000 ml Cord Entanglement: None Nuchal Cord Compression: Without compression Cord Vessel Description: 3 Vessels Esitmated Blood Loss (ml): 1000 ml Infant Gender: Female (1 minute): 8 (5 minute): 9 Delayed cord clamping: Yes Antibiotic Given: Clindamycin 600mg IV x1 and Gentamicin 1.5mg/kg IV x1 Pt instructed on risks of surgery: Bleeding, Anesthesia Risks, Infection, Need f or Future C-Sections, Failure Rate of 1 to 2%, Injury to surrounding structure(s) including bowel and bladder, Availability of other non-permanent control options Complications: None - Admit VTE Documentation VTE Present on Admission: No VTE Mechan Device Prophylaxis: SCD's VTE Pharm Prophylaxis ordered?: No
[2019-09-30] MEDS: Lactated Ringers 1,000 ML 100 ML IV (14:00)
[2019-09-30 14:20] LABS: Pathology Specimen OB SEE PATHOLOGY REPORT
[2019-09-30] MEDS: Oxytocin 30 units/NS 500 ml 30 UNITS/500 ML IV.SOLN 167 UNITS IV (14:32)
[2019-09-30] MEDS: Heparin Injection (Vial) 5,000 UNIT/ML VIAL 5000 UNIT SC (18:58)
[2019-09-30] MEDS: Ketorolac 30 MG/ML Syringe IV (20:14)
[2019-10-01 02:02] VITALS: PULSE 61; RESP 16; O2SAT 95
[2019-10-01] MEDS: 0.9% Saline Lock 10 ML Syringe IV ×4 (02:08→14:56)
[2019-10-01] MEDS: Ketorolac 30 MG/ML Syringe IV ×3 (02:08→14:57)
[2019-10-01] MEDS: Heparin Injection (Vial) 5,000 UNIT/ML VIAL 5000 UNIT SC ×2 (03:33→10:46)
[2019-10-01 03:36] VITALS: BP 98/61; PULSE 66; RESP 14; TEMP 36.4
[2019-10-01] MEDS: Acetaminophen 500 MG Tablet 1000 MG PO ×2 (03:45→10:47)
[2019-10-01 05:57] LABS: Hematocrit 33.8 % (37-47); Hemoglobin 10.7 g/dL (12.0-15.0); Mean Corp Hgb Conc 31.7 g/dL (32-36); Mean Corpuscular Hgb 30.1 pg (27.0-32.0); Mean Corpuscular Volume 94.9 fL (81-99); Mean Platelet Vol. 11.4 fl (6.2-12.0); Platelet Count 141 K/mm3 (150-450); RBC Distribution Width CV 14.2 % (11.6-14.6); RBC Distribution Width SD 49.2 fl (35.1-43.9); Red Blood Count 3.56 M/mm3 (4.2-5.4); White Blood Count 8.8 K/mm3 (4.4-11.0)
[2019-10-01 08:00] VITALS: BP 116/76; PULSE 73; RESP 16; TEMP 36.3
[2019-10-01] MEDS: Senna/Docusate Sodium 1 Tablet PO (10:47)
[2019-10-01] MEDS: Prenatal Vits Tablet 1 TABLET PO (10:48)
--- NOTE | 2019-10-01 11:30 | PCM.PN.OB ---
Patient Problems: Active and Suspected Problems 37 weeks gestation of (Acute) Decreased movement (Acute) Subjective: Patient without complaints. Tolerating diet well. Minimal pain. Wants to go home later today if possible. Denies flatus. Objective: Mepilex dressing is clean, dry, intact. Good urine output. Hemoglobin okay. - Physical Exam Vitals/I&O's: Vital Signs Temp Pulse Resp BP Pulse Ox 97.3 F L 73 16 116/76 95 10/01/19 08:00 10/01/19 08:00 10/01/19 08:00 10/01/19 08:00 10/01/19 02:02 Oxygen Delivery Method Room Air Weight: 227 lb 1.218 oz Body Mass Index (BMI) 41.5 Intake and Output for Last 24 Hours 09/29/19 09/30/19 10/01/19 23:59 23:59 23:59 Intake Total 3893.08 / 3893.08 670 / 670 Output Total 700 / 700 1250 / 1250 Balance 3193.08 / 3193.08 -580 / -580 Laboratory Results 09/30/19 09:50: COVID-19 (WILLIAM) Cancelled 10/01/19 05:45: WBC 8.8, RBC 3.56 L, Hgb 10.7 L, Hct 33.8 L, MCV 94.9, MCH 30.1, MCHC 31.7 L, RDW Std Deviation 49.2 H, RDW Coeff of Mitchell 14.2, Plt Count 141 L, MPV 11.4 Current Medications Acetaminophen (Tylenol) 1,000 mg PO Q6H [facility] Last Admin: 10/01/19 10:47 Dose: 1,000 mg Documented by: Bisacodyl (Dulcolax) 10 mg RECTAL UD PRN PRN Reason: If no BM Heparin Sodium (Porcine) (Heparin Na) 5,000 unit SC Q8H [facility] Last Admin: 10/01/19 10:46 Dose: 5,000 unit Documented by: Hydrocortisone (Hytone) 1 applic TOPICAL TID PRN PRN; Protocol PRN Reason: Discomfort Lactated Ringer's () 1,000 mls @ 100 mls/hr IV .Q10H [facility] Last Admin: 10/01/19 11:02 Dose: Not Given Documented by: Naloxone HCl 4 mg/ Dextrose 504 mls @ 0 mls/hr IV .Q0M PRN; Protocol PRN Reason: Respiratory depression Ibuprofen (Motrin) 600 mg PO Q6 [facility] Last Admin: 10/01/19 06:21 Dose: Not Given Documented by: Ketorolac Tromethamine (Toradol (Bkc)) 30 mg IV Q6H [facility] Stop: 10/01/19 14:01 Last Admin: 10/01/19 07:54 Dose: 30 mg Documented by: Methylergonovine Maleate (Methergine) 0.2 mg IM X1 PRN PRN Reason: Uterine Atony Naloxone HCl (Narcan) 0.02 mg IV Q1M PRN PRN Reason: RR <10 and pt unresponsive Ondansetron HCl (Zofran) 4 mg IV Q4H PRN PRN PRN Reason: Nausea Last Admin: 09/30/19 13:08 Dose: 4 mg Documented by: Oxycodone HCl (Oxyir) 5 - 10 mg PO Q4H PRN PRN PRN Reason: Pain Score 4-10/10 Multivit/Folic Acid/Iron (Prenatabs Fa) 1 tablet PO DAILY@1200 [facility] Last Admin: 10/01/19 10:48 Dose: 1 tablet Documented by: Prochlorperazine Edisylate (Compazine Iv) 10 mg IV Q6H PRN PRN PRN Reason: NAUSEA Senna/Docusate Sodium (Senokot-S, Anastasia-Colace) 0 tablet PO DAILY [facility] Last Admin: 10/01/19 10:47 Dose: 1 tablet Documented by: Simethicone (Mylicon) 80 mg PO [facility] PRN PRN Reason: Indigestion/stomach pain Sodium Chloride () 5 - 15 ml IV UD PRN PRN Reason: SALINE FLUSH Last Admin: 10/01/19 08:06 Dose: 10 ml Documented by: Medical Necessity - Tobacco Use Smoking Status: Never smoker Assessment/Plan All Active Problems delivery delivered (Acute) 37 weeks gestation of (Acute) Decreased movement (Acute) Doing well postoperative day #1 status post repeat . Will discharge to home later today if good progress continues and baby is able to be released. Home-going instructions given.
--- NOTE | 2019-10-01 11:32 | DCINST_ITS ---
Discharge Diet: No Restrictions Discharge Activity: May not drive while taking narcotic pain medications., May Shower, May Take a Tub Bath May resume sexual activity in: 4-6 weeks Lifting Restrictions: 20 pounds Additional Activity Instructions:: Nothing in the vagina for 4-6 weeks. You may return to work/school in 6 weeks. Call your doctor if your incision/area has: Continuous Slow Oozing, Sudden Increased Bleeding, Increased Pain/ Swelling, Increased Redness, Foul Smelling Discharge Call your doctor if you observe: Fever of 101 or Higher, Inability to urinate, Inability to have a bowel movement, Using more than one pad per hour Additional Instructions: If you experience any of the following, contact your healthcare provider. * Bleeding that soaks a pad every hour for 2 hours * Unrelieved incision or abdominal pain * Swelling, redness, discharge or bleeding from your incision or episiotomy site * Your incision begins to separate * Problems urinating (including inability to urinate or burning while urinating). * Visual changes * Severe headache * Flu-like symptoms * Pain or redness in one of both of your breasts * Pain, warmth, tenderness or swelling in your legs, especially the calf area * Frequent nausea and vomiting * Symptoms of depression or anxiety If you experience any of the following, call 911 or go to the nearest Emergency Room. * Chest pain * Problems breathing * Seizure activity * Partial or complete paralysis of a body part, slurred speech, weakness or drooping of the face, or a sudden inability to walk or hold your balance Allergies/Adverse Reactions: Allergies ampicillin Allergy (Verified 06/23/17 09:29) Unknown cefaclor [From Ceclor] Allergy (Verified 06/23/17 09:30) Unknown cefotaxime Allergy (Verified 06/23/17 09:29) Unknown Medications to take at Discharge Prenatabs FA 1 tab PO DAILY 06/23/17 Docusate Sodium [Colace] 100 mg PO BID PRN PRN #60 cap 10/01/19 Oxycodone [Oxyir] 5 mg PO Q6H PRN PRN 7 Days #14 tab 10/01/19 The following prescriptions were given: Docusate Sodium [Colace] 100 mg PO BID PRN PRN #60 cap PRN Reason: Constipation Transmission Status: Received by [facility] [id number] Oxycodone [Oxyir] 5 mg PO Q6H PRN PRN 7 Days #14 tab PRN Reason: Pain Score 6-10/10 Transmission Status: Received by [facility] [id number] Follow-Up: Call to make an appointment with your doctor for an incision check in 1-2 weeks. You will also need a 6 week post- follow up appointment. Test results from this visit will be discussed in further detail at your follow- up appointment, if applicable. Please Follow Up With: Wendy Ahmadi MD - [phone] When: Call to make an appointment for an incision check in 2 weeks. Primary Care Physician: Papa Curiel MD [Primary Care Provider] -
[2019-10-01 15:45] VITALS: BP 120/72; PULSE 72; RESP 18; TEMP 36.6
== END 2019-10-01 15:45 | disposition home or self-care (01) | DRG 785 ==
PROVIDERS: Admitting Provider Obstetrics & Gynecology; PCP Family Medicine; Visit Provider Obstetrics & Gynecology
PROC: 10D00Z1 Extraction of Products of Conception, Low, Open Approach (ICD-10-PCS; CPT 59514; principal; 2019-09-30 11:45)
DX: O36.8130 Decreased fetal movements, third trimester, not applicable or unspecified (principal); O40.3XX0 Polyhydramnios, third trimester, not applicable or unspecified; O09.293 Supervision of pregnancy with other poor reproductive or obstetric history, third trimester; Z37.0 Single live birth; Z30.2 Encounter for sterilization; Z3A.37 37 weeks gestation of pregnancy; Z98.891 History of uterine scar from previous surgery
CPT/HCPCS: 85025; 85027; 86850; 86900; 86901; 87635; 88302; 99218; G2023; J7120; A4216; G0378; J2405; U0003

== ENCOUNTER → 2019-11-17 | Outpatient (CLI) | payer BC, SELFPAY ==
[2019-09-30 09:42] VITALS: BMI 41.5
[2019-11-22 16:59] LABS: HPV APTIMA, High Risk Negative (Negative)
== END | disposition home or self-care (01) ==
LOC: WOBLAB 11:31
PROVIDERS: PCP Family Medicine; Visit Provider Obstetrics & Gynecology
DX: Z12.4 Encounter for screening for malignant neoplasm of cervix (principal)
CPT/HCPCS: 87624; 88175; G0145